=== PATIENT | male | born 1965 ===

== ENCOUNTER → 2024-04-16 | Outpatient (CLI) | payer MEDICAID, SELFPAY ==
--- NOTE | 2024-04-16 08:45 | XR_ITS ---
Examination: MRI left femur without contrast Date and time of exam: April 17, 2019 5091 hrs. Indications: Injury to the leg 5 months ago with pain and swelling Technique: Multiple MRI axial and sagittal sections lumbar spine. Sagittal T2-weighted images, TR 3500, TE 118 T1 weighted transverse sections, TR 688 T8.5, T2-weighted sagittal sections T1 weighted sagittal sections TR 621, TE 30 T2 axial sections, TR 4, 190, TE 84. Findings: No hip fracture or hip dislocation Shaft of the femur intact No cortical bone destruction No endosteal scalloping No patellar dislocation Impression: No hip or femoral shaft fracture Recommend correlation with plain films of the left femur
== END | disposition home or self-care (01) ==
LOC: SMRI 08:30
PROVIDERS: Referring Provider Internal Medicine; Visit Provider Internal Medicine
DX: R22.42 Localized swelling, mass and lump, left lower limb (principal); S89.92XS Unspecified injury of left lower leg, sequela; X58.XXXS Exposure to other specified factors, sequela
CPT/HCPCS: 73718

== ENCOUNTER 2024-05-15 19:44 | Emergency (ER) | payer MEDICAID, SELFPAY ==
[2024-05-15 19:44] VITALS: BMI 31.8
[2024-05-15 20:11] VITALS: BP 178/78; PULSE 73; RESP 18; TEMP 37.3; O2SAT 96
--- NOTE | 2024-05-15 20:33 | EDNOTE_ITS ---
ED Animal Bite RME/HPI General Chief Complaint: Animal Bite Stated Complaint: DOG BIT TO RIGHT LOWER LEG Time Seen by Provider: 05/15/24 20:21 Arrival date/time: 05/15/24 19:44 RME / HPI RME / HPI narrative: This section includes all my notes and documentations, including HPI, PE, and ED course. Milo Babin MD HPI: 59-year-old male here with dog bite and right ankle area at home just prior to arrival. By his dog. The dog is vaccinated. No other complaints. ROS: All negative except as documented in HPI. Physical Exam: General: Alert and oriented. Eyes: Conjunctivae and lids clear. ENT: No nasal congestion. Neck: Supple. Lungs: No respiratory distress. Skin: Warm and dry. In the distal aspect of the right lower leg, there are many skin abrasions, varying size and shape. Neuro: Alert and oriented X 3. At this point, diagnoses include dog bite with skin abrasions. Treatment here included wound care with topical ABX, Tdap, Augmentin, ibuprofen, and two Tylenol #3. Provided good wound care instructions. Based on my best medical judgment, made decision no further evaluation or treatment indicated at this time. Patient understands and agrees to the discharge instructions customized and printed, see below. Discharge Instructions from Dr. Babin printed for you: 1. To prevent severe infection from the dog bite, take Augmentin as prescribed. 2. Apply ice for 20 minutes every 2-3 hours today and tomorrow. 3. Ibuprofen 800 mg every 6-8 hours today and tomorrow to decrease inflammation then as needed. 4. Wound care of the skin abrasions as instructed in the attached handout. 5. See a private doctor on 05/20/2024 if not completely better. 6. To help the healing process, minimal weightbearing and elevate above the waist level today and tomorrow as much as possible. 7. Seek immediate medical care with fever, spreading redness from a wound, or with any concerns. Instrucciones de ne del Dr. Babin impresas para usted: 1. Para prevenir henrry infecci?n grave por la mordedura de astrid, tome Augmentin seg?n lo prescrito. 2. Aplique hielo gonzalez 20 minutos cada 2-3 horas hoy y ma?monique. 3. Ibuprofeno 800 mg cada 6-8 horas hoy y ma?monique para disminuir la inflamaci?n, y luego, seg?n sea necesario. 4. Cuidado de las abrasiones de la piel seg?n las instrucciones del folleto adjunto. 5. Consulte con un m?dico particular el 12/13/2024 si no mejora por completo. 6. Para facilitar el proceso de curaci?n, minimice el peso y el?vese por encima de la cintura hoy y ma?monique tanto екатерина sea posible. 7. Busque atenci?n m?dica inmediata si tiene fiebre, enrojecimiento extendido de henrry herida o si tiene alguna inquietud. Milo Babin MD Related Data Previous Rx's ?Medication ?Instructions ?Recorded amoxicillin 875 mg-potassium 1 tab PO BID 3 days #6 ta bs 05/15/24 clavulanate 125 mg tablet Allergies Allergy/AdvReac Type Severity Reaction Status Date / Time No Known Allergies Allergy Verified 05/15/24 19:44 Course Quality Measures none Orders Category Date Time Status Wound Care [Wound Care] NOW Care 05/15/24 20:34 Active ACETAMINOPHEN w/COD 300-30 [Tylenol w/Cod #3] Med 05/15/24 20:34 Discontinued 2 tab PO X1 ONE Amoxicillin/Pot Clav 875 [Augmentin 875] Med 05/15/24 20:34 Discontinued 1 tab PO X1 ONE Bacitracin Oint pkt Med 05/15/24 20:34 Discontinued 1 gm TOP X1 ONE Ibuprofen Tab [Motrin Tab] Med 05/15/24 20:34 Discontinued 800 mg PO X1 ONE TET,DIP/PERT AC (Adult)-Tdap [Boostrix Adult (Tdap) Med 05/15/24 20:34 Discontinued Vacc] 0.5 ml IMI .ONCE ONE Vital Signs Vital signs: Vital Signs Temperature 99.2 F 05/15/24 20:11 Pulse Rate 73 05/15/24 20:11 Respiratory Rate 18 05/15/24 20:11 Blood Pressure 178/78 H 05/15/24 20:11 Pulse Oximetry (%) 96 05/15/24 20:11 Oxygen Delivery Method Room Air 05/15/24 20:11 Animal Bite Patient data External records reviewed:: None Clinical information provided by:: patient and parent Social determinants that could affect healthcare access:: none Patient has the following chronic illnesses:: None How is presenting disease/condition affected by chronic disease/condition?: no chronic disease Evaluation data The following diagnostics were reviewed and interpreted by me:: other (specify) (No diagnostics ordered.) Lab and/or radiology exams considered but not ordered:: None Interpretation Summary: No diagnostics ordered. Medications / Prescriptions Medications or Prescriptions considered but not ordered:: None Medication administrations:: Medication Administration History Discontinued Medications Acetaminophen/Codeine Phosphate (Acetaminophen W/Cod 300-30 Tablet) 2 tab PO X1 ONE Stop: 05/15/24 20:35 Last Admin: 05/15/24 20:52 Dose: 2 tab Documented By: TISHA Amoxicillin/Clavulanate Potassium (Amoxicillin/Pot Clav 875 Tablet) 1 tab PO X1 ONE Stop: 05/15/24 20:35 Last Admin: 05/15/24 20:51 Dose: 1 tab Documented By: TISHA Bacitracin (Bacitracin Oint 1 Gm Packet) 1 gm TOP X1 ONE Stop: 05/15/24 20:35 Last Admin: 05/15/24 20:52 Dose: 1 gm Documented By: TISHA Diphtheria/Tetanus/Acell Pertussis (Diphth,Pertuss(Acell),Tet Vac 0.5 Ml Syr- Adult) 0.5 ml IMi .ONCE ONE Stop: 05/15/24 20:35 Last Admin: 05/15/24 20:53 Dose: 0.5 ml Documented By: TISHA Ibuprofen (Ibuprofen Tab 400 Mg Tablet) 800 mg PO X1 ONE Stop: 05/15/24 20:35 Last Admin: 05/15/24 20:51 Dose: 800 mg Documented By: TISHA Ibuprofen, Tdap, topical ABX, Augmentin, and two Tylenol #3. Consultations Consultation(s) initiated? (list below): No Diagnosis Differential diagnosis animal bite: dog bite and other (Laceration, abrasions, fracture, contusion, cellulitis) Most likely diagnosis given after review of the tests above:: Dog bite with abrasions Admission Indicated Admission indicated?: not indicated Explain why admission is indicated or not indicated:: There was no indication for admission. Admission Request Was there a request for admission?: No Disposition Plan Disposition Plan: Discharge Discharge Attestation Discharge Attestation: The patient and all family members were given an opportunity to ask questions and understood the discharge instructions. Discharge instructions specifically effects, indications for sooner follow up or return to the emergency department, and the expected course of current diagnosis. Patient condition: Stable Discharge Plan Plan Patient Disposition: HOME (Self Care) Prescriptions/Referrals Prescriptions/Med Rec: New amoxicillin-pot clavulanate 875-125 mg tablet 1 tab PO BID 3 Days Qty: 6 0RF Referrals: No Primary/Family,Physician [Primary Care Provider] - In 1 week Problem List Clinical Impression: Dog bite Patient/Caregiver Discharge Instructions Discharge Activity: activity as tolerated Education Materials: ED Abrasions, ED Dog Bite Additional Instructions: Discharge Instructions from Dr. Babin printed for you: 1. To prevent severe infection from the dog bite, take Augmentin as prescribed. 2. Apply ice for 20 minutes every 2-3 hours today and tomorrow. 3. Ibuprofen 800 mg every 6-8 hours today and tomorrow to decrease inflammation then as needed. 4. Wound care of the skin abrasions as instructed in the attached handout. 5. See a private doctor on 05/20/2024 if not completely better. 6. To help the healing process, minimal weightbearing and elevate above the waist level today and tomorrow as much as possible. 7. Seek immediate medical care with fever, spreading redness from a wound, or with any concerns. Instrucciones de ne del Dr. Babin impresas para usted: 1. Para prevenir henrry infecci?n grave por la mordedura de astrid, tome Augmentin seg?n lo prescrito. 2. Aplique hielo gonzalez 20 minutos cada 2-3 horas hoy y ma?monique. 3. Ibuprofeno 800 mg cada 6-8 horas hoy y ma?monique para disminuir la inflamaci?n, y luego, seg?n sea necesario. 4. Cuidado de las abrasiones de la piel seg?n las instrucciones del folleto adjunto. 5. Consulte con un m?dico particular el 12/13/2024 si no mejora por completo. 6. Para facilitar el proceso de curaci?n, minimice el peso y el?vese por encima de la cintura hoy y ma?monique tanto екатерина sea posible. 7. Busque atenci?n m?dica inmediata si tiene fiebre, enrojecimiento extendido de henrry herida o si tiene alguna inquietud. Print Language: Unknown Stand Alone Forms: Jennifer Award Info., Patient Portal Info Letter
[2024-05-15] MEDS: IBUPROFEN TAB 400 MG TABLET 800 MG PO (20:51)
[2024-05-15] MEDS: AMOXICILLIN/POT CLAV 875 TABLET 1 TAB PO (20:51)
[2024-05-15] MEDS: BACITRACIN OINT 1 GM PACKET TOP (20:52)
[2024-05-15] MEDS: ACETAMINOPHEN w/COD 300-30 TABLET 2 TAB PO (20:52)
[2024-05-15] MEDS: DIPHTH,PERTUSS(ACELL),TET VAC 0.5 ML SYR- ADULT IMi (20:53)
== END 2024-05-15 21:21 | disposition home or self-care (01) ==
PROVIDERS: Emergency Provider Emergency Medicine
DX: S90.571A Other superficial bite of ankle, right ankle, initial encounter (principal); W54.0XXA Bitten by dog, initial encounter; Z23 Encounter for immunization
CPT/HCPCS: 90471; 90715; 99282; A9270